=== PATIENT | male | born 1950 | race Asian ===

== ENCOUNTER 2018-03-16 23:44 | Emergency (ER) | payer MEDICARE, MEDICAID ==
[~2018-03-16] VITALS: Ht 185.4 cm; Wt 84.1 kg
[2018-03-16] MEDS ORDERED: SIMV-261 PO (23:50)
[2018-03-16] MEDS ORDERED: METO50 PO (23:50)
[2018-03-16] MEDS ORDERED: ASPI-556 PO (23:50)
[2018-03-16] MEDS ORDERED: METF-960 PO (23:50)
[2018-03-16] MEDS ORDERED: LOSA25TA16 PO (23:50)
[2018-03-17 00:43] LABS: BASOPHILS % (AUTO) 1.3 % (0.0-2.0); EOSINOPHILS % (AUTO) 9.1 % (1.0-6.0); HEMATOCRIT 40.9 % (41-53); HEMOGLOBIN 13.8 g/dL (13.5-17.5); LYMPHOCYTES # (AUTO) 2.1 K/uL (1.0-4.8); LYMPHOCYTES % (AUTO) 22.2 % (22.0-44.0); MEAN CORPUSCULAR HEMOGLOBIN 30.6 pg (26.0-34.0); MEAN CORPUSCULAR HGB CONC 33.7 G/dL (31.0-37.0); MEAN CORPUSCULAR VOLUME 91 fL (80-100); MONOCYTES % (AUTO) 10.6 % (2.0-9.0); NEUTROPHILS # (AUTO) 5.2 K/uL (1.8-7.7); NEUTROPHILS % (AUTO) 56.8 % (40.0-70.0); PLATELET COUNT (AUTO) 166 K/uL (150-450); RED BLOOD CELL COUNT(AUTO) 4.51 MIL/uL (4.50-5.90); RED CELL DISTRIBUTION WIDTH 14.1 % (11.5-14.5)
[2018-03-17] MEDS ORDERED: MECLIZINE HCL 25 MG TABLET PO ONE (00:45)
[2018-03-17 00:52] LABS: CALCIUM, TOTAL 9.1 mg/dL (8.8-10.5); CREATININE 1.87 mg/dL (0.60-1.30); POTASSIUM 3.7 mmol/L (3.5-5.1)
[2018-03-17 00:59] LABS: ALBUMIN 3.7 g/dL (3.4-5.0); BILIRUBIN,TOTAL 0.3 mg/dL (0.1-1.0); TOTAL PROTEIN, SERUM 7.8 g/dL (6.4-8.2)
[2018-03-17] MEDS ORDERED: ONDANSETRON HCL 4 MG/2 ML VIAL IVP ONE (01:00)
[2018-03-17 03:05] VITALS: BP 143/86
[2018-03-17 16:20] LABS: GLUCOSE,POINT OF CARE 134 MG/DL (70-110)
== END 2018-03-17 03:38 | disposition home or self-care (01) ==
LOC: EMS 23:47 → EDBD 23:47 → EMS 03-17 03:38
DX: R42 Dizziness and giddiness (principal); R11.2 Nausea with vomiting, unspecified; R79.89 Other specified abnormal findings of blood chemistry; E11.9 Type 2 diabetes mellitus without complications; E78.00 Pure hypercholesterolemia, unspecified; I10 Essential (primary) hypertension; F17.210 Nicotine dependence, cigarettes, uncomplicated; Z79.82 Long term (current) use of aspirin; Z79.899 Other long term (current) drug therapy; Z79.84 Long term (current) use of oral hypoglycemic drugs
CPT/HCPCS: 36415; 70450; 80053; 82962; 83690; 84484; 85025; 93005; 96374; 99285; J2405